=== PATIENT | female | born 1965 | race African-American/Black ===

== ENCOUNTER → 2018-10-27 | Outpatient (CLI) | payer OTHER ==
--- NOTE | 2018-10-27 16:59 | RAD ---
EXAM: AP, lateral and lumbosacral spot views of the lumbar spine DATE: 10/27/2018 12:00 AM INDICATION: Low back pain, arthritis COMPARISON: No Prior FINDINGS: For the purposes of this report there are 5 nonrib-bearing lumbar-type vertebral bodies. Vertebral body heights are preserved. Straightening of the normal lumbar lordosis. Severe L5-S1 disc height loss. Advanced facet degenerative change L3-4 and below. IMPRESSION: 1. Multilevel spondylosis as above 2. Negative acute fracture or subluxation. Electronically signed by: Ugo Potter MD (10/27/2018 4:57 PM) [facility]
== END | disposition home or self-care (01) ==
LOC: RAD 09:18
PROVIDERS: ATTEND Family Medicine
DX: Z02.71 Encounter for disability determination (principal); M47.816 Spondylosis without myelopathy or radiculopathy, lumbar region; M51.36 Other intervertebral disc degeneration, lumbar region; R29.890 Loss of height
CPT/HCPCS: 72100